=== PATIENT | female | born 1990 | race Caucasian/White ===

== ENCOUNTER 2020-06-23 04:53 | Inpatient (IN) | payer OTHER ==
[2020-06-23 05:57] LABS: APPEARANCE,URINE CLEAR; BILIRUBIN,URINE NEGATIVE (NEGATIVE); COLOR,URINE YELLOW; GLUCOSE, URINE NEGATIVE (NEGATIVE); KETONES,URINE NEGATIVE (NEGATIVE); LEUKOCYTE ESTERASE,URINE NEGATIVE (NEGATIVE); NITRITE,URINE NEGATIVE (NEGATIVE); PROTEIN,URINE NEGATIVE (NEGATIVE); URINE SPECIFIC GRAVITY 1.017; UROBILINOGEN,URINE NEGATIVE mg/dL (<2.0)
[2020-06-23 06:04] LABS: URINE AMPHETAMINES SCREEN NEGATIVE; URINE BARBITURATES SCREEN NEGATIVE; URINE BENZODIAZEPINES SCREEN NEGATIVE; URINE COCAINE SCREEN NEGATIVE; URINE MARIJUANA (THC) SCREEN NEGATIVE; URINE METHADONE SCREEN NEGATIVE
[2020-06-23 06:07] LABS: URINE PHENCYCLIDINE SCREEN NEGATIVE
[2020-06-23] MEDS ORDERED: HYDROXYZINE PAMOATE 50 MG CAPSULE PO ONE (06:33)
[2020-06-23] MEDS ORDERED: HYDROXYZINE PAMOATE 50 MG CAPSULE ONE (06:34)
[2020-06-23] MEDS ORDERED: RINGERS SOLUTION,LACTATED 1,000 ML IV PRN (07:15)
[2020-06-23] MEDS ORDERED: RINGERS SOLUTION,LACTATED 1,000 ML IV ONE (07:28)
[2020-06-23] MEDS ORDERED: RINGERS SOLUTION,LACTATED 500 ML IV ONE (07:28)
[2020-06-23] MEDS ORDERED: MISOPROSTOL 0.2 MG TABLET ONE (08:07)
[2020-06-23] MEDS ORDERED: OXYTOCIN 10 UNIT/ML VIAL ONE (08:07)
[2020-06-23] MEDS ORDERED: OXYTOCIN/0.9 % SODIUM CHLORIDE 30 UNIT/500 ML RTUINJ ONE (08:07)
[2020-06-23] MEDS ORDERED: LIDOCAINE 1% INJ-PF (10 MG/ML) 30 ML SDV ONE (08:07)
[2020-06-23] MEDS ORDERED: OXYTOCIN/0.9 % SODIUM CHLORIDE 30 UNIT/500 ML RTUINJ IV PRN ×2 (08:30→13:33)
[2020-06-23 08:39] LABS: ABSOLUTE EOSINOPHILS # (AUTO) 0.1 10^3/uL (0.0-0.6); ABSOLUTE LYMPHOCYTES (AUTO) 1.5 10^3/uL (0.5-4.7); ABSOLUTE MONOCYTES (AUTO) 0.7 10^3/uL (0.1-1.4); ABSOLUTE NEUT (AUTO) 8.7 10^3/uL (1.7-8.2); BASOPHILS % (AUTO) 0.4 % (0-2); HEMATOCRIT 34.4 % (36.0-47.0); HEMOGLOBIN 11.5 g/dL (12.0-15.5); LYMPHOCYTES % (AUTO) 13.4 % (13-45); MEAN CORPUSCULAR HEMOGLOBIN 28.1 pg (27.0-33.4); MEAN CORPUSCULAR HGB CONC 33.3 g/dL (32.0-36.0); MEAN CORPUSCULAR VOLUME 84 fl (80-97); PLATELET COUNT 239 10^3/uL (150-450); RED BLOOD COUNT 4.08 10^6/uL (3.72-5.28); RED CELL DISTRIBUTION WIDTH 13.3 % (11.5-14.0); SEGMENTED NEUTROPHILS % (AUTO) 79.2 % (42-78); TOTAL CELLS COUNTED % (AUTO) 100 %; WHITE BLOOD COUNT 10.9 10^3/uL (4.0-10.5)
[2020-06-23] MEDS ORDERED: EPHEDRINE SULFATE INJ 50 MG/1 ML AMPULE ONE (10:32)
[2020-06-23] MEDS ORDERED: FENTANYL/BUPIVACAINE/NS/PF 300 MCG/150 ML RTUINJ EPI ONE (10:32)
[2020-06-23] MEDS ORDERED: ROPIVACAINE HCL 0.2% INJ/PF (2 MG/ML) 20 ML SDV ONE (10:33)
--- NOTE | 2020-06-23 10:55 | Admission Physical ---
Datetime Report Generated by CPN: 06/23/2020 10:54 CURRENT ADMISSION Chief Complaint: Uterine Contractions; Suspected Ruptured Membranes Indication for Induction: Not Applicable Admit Impression : Term, Intrauterine ; Ruptured Membranes Admit Plan: Admit to Unit; Initiate Labor Protocol ALLERGIES Medication Allergies: Yes Medication Allergies: amoxicillin (06/23/2020) Latex: Latex Allergies Food Allergies: none Environmental Allergies: none OBSTETRICAL HISTORY EDC: 06/25/2020 00:00 : 2 Para: 0 Term: 0 : 0 SAB: 0 IAB: 1 Ectopic: 0 Livin Cesareans: 0 VBACs: 0 Multiple Births: 0 Gestational Diabetes: No Rh Sensitization: No Incompetent Cervix: No JEFF: No Infertility: No ART Treatment: No Uterine Anomaly: No IUGR: No Hx Previous C/S: No Macrosomia: No Hx Loss/Stillborn: No PIH: No Hx : No Placenta Previa/Abruption: No Depression/PP Depression: Yes PTL/PROM: No Post Hemorrhage: No Current Procedures: Ultrasound Obstetrical History Comments: 2014- IAB at 7 weeks G2- Current SEE RECORDS Alcohol: No Marijuana : No Cocaine: No Other Illicit Drugs: No Cigarettes: Never Smoker. 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 INFECTIOUS HISTORY Gonorrhea: No Genital Herpes: No Chlamydia: No Tuberculosis: No Syphilis: No Hepatitis: No HIV/AIDS Exposure: No Rash or Viral Illness: No HPV: No PHYSICAL EXAM General: Normal HEENT: Normal Neurologic: Normal Thyroid: Normal Heart: Normal Lungs: Normal Breast: Deferred Back: Normal Abdomen: Normal Genitourinary Exam: Normal Extremities: Normal DTRs: Normal Pelvic Type: Adequate Vital Signs: Reviewed VAGINAL EXAM Dilatation: 4 Effacement: 90 Station: -2 FETUS A EGA: 39.5 Monitoring: External US FHR- Baseline: 120 Variability: Moderate 6-25bpm Decelerations: None FHR Category: Category I Estimated Weight (gm): 3600 Presentation: Vertex Admit Comment: anticipate delivery PLANS FOR LABOR AND DELIVERY Labor and Delivery: None Other Pain Management Plans: see how it goes Feeding Preference: Both Benefit of Breast Feed Discussed: Yes Circumcision: N/A INFORMED CONSENT Signature: with User ID: [email or web address]
[2020-06-23] MEDS ORDERED: DIPHENHYDRAMINE HCL 25 MG CAPSULE PO PRN (13:33)
[2020-06-23] MEDS ORDERED: MEASLES,MUMPS&RUBELLA VACC/PF 0.5 ML VIAL SUBCUT PRN (13:33)
[2020-06-23] MEDS ORDERED: ACETAMINOPHEN 650 MG SUPP.RECT PR PRN (13:33)
[2020-06-23] MEDS ORDERED: MAG HYDROX/AL HYDROX/SIMETH SUSP 30 ML UDCUP PO PRN (13:33)
[2020-06-23] MEDS ORDERED: VARICELLA VACC/PF (1350 UNIT/0.5 ML) 0.5 ML VIAL SUBCUT PRN (13:33)
[2020-06-23] MEDS ORDERED: FAMOTIDINE 20 MG TABLET PO PRN (13:33)
[2020-06-23] MEDS ORDERED: GLYCERIN/WITCH HAZEL LEAF 1 EACH MED..WIPE TP PRN (13:33)
[2020-06-23] MEDS ORDERED: ACETAMINOPHEN 325 MG TABLET PO PRN (13:33)
[2020-06-23] MEDS ORDERED: DIBUCAINE 1% OINTMENT 28 GM TP PRN (13:33)
[2020-06-23] MEDS ORDERED: DIPH/PERTUSS(ACELL)/TETANUS VAC/PF 0.5 ML SYR (>=10YO) IM PRN (13:33)
[2020-06-23] MEDS ORDERED: PSEUDOEPHEDRINE HCL 30 MG TABLET PO PRN (13:33)
[2020-06-23] MEDS ORDERED: ZOLPIDEM TARTRATE 5 MG TABLET PO PRN (13:33)
[2020-06-23] MEDS ORDERED: MAGNESIUM HYDROXIDE SUSP 30 ML UDCUP PO PRN (13:33)
[2020-06-23] MEDS ORDERED: ACETAMINOPHEN WITH CODEINE #3 TABLET PO PRN ×2 (13:33)
--- NOTE | 2020-06-23 14:59 | Birth Certificate Data ---
Cert Data Datetime Report Generated by CPN: 06/23/2020 14:59 CERTIFICATE DATA Delivery Provider: Aman Diez MD (06/23/2020 05:22:Kamryn Álvarez RN) 47a. Care: Yes (06/23/2020 05:22:Mariam Young RN) 48a. Number of Prev Live Births: 0 (06/23/2020 05:22:Mariam Young RN) 48b. Now Livin (06/23/2020 05:22:Mariam Young RN) 48c. Live Births Now : 0 (06/23/2020 05:22:QS system process) 48e. Losses: 1 (06/23/2020 05:22:Mariam Young RN) 48f. Date of Last Preg Loss: 10/24/2014 00:00 (06/23/2020 05:22:Mariam Young RN) RISK FACTORS IN THIS 49a. Diabetes: No (06/23/2020 05:22:Mariam Young RN) 49b. Hypertension: No (06/23/2020 05:22:Mariam Young RN) 49c. Previous Births: 0 (06/23/2020 05:22:Mariam Young RN) 49d. Stillborns: No (06/23/2020 05:22:Mariam Young RN) 49d. IUGR: No (06/23/2020 05:22:Mariam Young RN) 49e. Infertility Treatment: No (06/23/2020 05:22:Mariam Young RN) 49f. Previous Cesareans: 0 (06/23/2020 05:22:Mariam Young RN) Mother's Height 50b. Height Inches: 63 (06/23/2020 13:42:QS system process) Mother's Weight 51a. Pre- Weight (lbs): 126 (06/23/2020 05:22:Mariam Young RN) 51b. Weight at Delivery (lbs): 156 (06/23/2020 13:42:QS system process) 52. Dt Last Normal Menses Began: 09/19/2019 00:00 (06/23/2020 05:22:Mariam Young RN) Infections Present/Treated 53a. Gonorrhea: No (06/23/2020 05:22:Mariam Young RN) Results this Hospital Visit : Negative (06/23/2020 05:22:Mariam Young RN) 53b. Syphilis: No (06/23/2020 05:22:Mariam Young RN) Results this Hospital Visit: NONREACTIVE (06/23/2020 08:20:QS system process) 53c. Chlamydia: No (06/23/2020 05:22:Mariam Young RN) Results this Hospital Visit: Negative (06/23/2020 05:22:Mariam Young RN) 53d. Hepatitis B: No (06/23/2020 05:22:Mariam Young RN) Results this Hospital Visit: Negative (06/23/2020 05:22:Mariam Young RN) 53e. Hepatitis C: Negative (06/23/2020 05:22:Mariam Young RN) 53h. Mother Tested for HBsAG: Yes (06/23/2020 05:22:Mariam Young RN) 53i. Date Tested: 04/01/2020 00:00 (06/23/2020 05:22:Mariam Young RN) 53j. Test Result: Negative (06/23/2020 05:22:Mariam Young RN) Obstetric Procedures 54a, b, c. Obstetric Procedures: Ultrasound (06/23/2020 05:22:Mariam Young RN) Cigarette Smoking Cigarette Smoking: Never Smoker. [id number] (06/23/2020 05:22:Mariam Young RN) 55a. 3 Months Before Preg - Ci (06/23/2020 05:22:Mariam Young RN) 55a. Packs: 0 (06/23/2020 05:22:Mariam Young RN) 55b. 1st Trimester of Preg- Ci (06/23/2020 05:22:Mariam Young RN) 55b. Packs: 0 (06/23/2020 05:22:Mariam Young RN) 55c. 2nd Trimester of Preg- Ci (06/23/2020 05:22:Mariam Young RN) 55c. Packs: 0 (06/23/2020 05:22:Mariam Young RN) 55d. 3rd Trimester of Preg- Ci (06/23/2020 05:22:Mariam Young RN) 55d. Packs: 0 (06/23/2020 05:22:Mariam Young RN) Onset of Labor 56a. PROM >12 Hrs: 6.53 (06/23/2020 07:12:QS system process) 56b. Precipitous Labor <3 Hrs: 6 (06/23/2020 05:22:QS system process) 56c. Prolonged Labor > 20 Hrs: 6 (06/23/2020 05:22:QS system process) 57a. Induction of Labor: Augmentation (06/23/2020 05:22:Kamryn Álvarez RN) 57c. Non-Vertex Presentation A: Vertex (06/23/2020 05:22:Kamryn Álvarez RN) 57d. Steroids - Lung Mat: None (06/23/2020 05:22:Kamryn Álvarez RN) 57d. Steroids - Lung Mat: Not Applicable (06/23/2020 05:22:Kamryn Álvarez RN) 57f. Mat [place] or Temp >100.4: 98.3 (06/23/2020 05:22:Kamryn Álvarez RN) 57g. Moderate/Heavy Meconium: Clear (06/23/2020 07:12:Kamryn Álvarez RN) 57h. Intolerance of Labor: N/A (06/23/2020 05:22:Kamryn Álvarez RN) : N/A (06/23/2020 05:22:Kamryn Álvarez RN) 57i. Epidural/Spinal Anesthesia: Epidural (06/23/2020 05:22:Kamryn Álvarez RN) Method of Delivery 58a. Forceps - Unsuccessful A: N/A (06/23/2020 05:22:Kamryn Álvarez RN) 58b. Vacuum - Unsuccessful A: N/A (06/23/2020 05:22:Kamryn Álvarez RN) 58c. Presentation at 58c. Presentation at - A : Vertex (06/23/2020 05:22:[facility], ) 58c. Presentation at - A : N/A (06/23/2020 05:22:[facility], ) 58c. Presentation at - A : Cephalic (06/23/2020 05:22:[facility], ) Final Route and Method of Del 58d. Baby A Route/Delivery: Vaginal (06/23/2020 13:17:Kamryn Álvarez RN) 58e. Trial of Labor Attempted: No (06/23/2020 05:22:[facility], RN) 58e. Trial of Labor Attempted A: N/A (06/23/2020 05:22:[facility] RN) 58e. Trial of Labor Attempted B: N/A (06/23/2020 05:22:[facility], RN) Maternal Morbidity 59b. 3rd or 4th Degree Lacs: Perineal (06/23/2020 05:22:Kamryn Sales, RN) 59b. 3rd or 4th Degree Lacs: Second Degree (06/23/2020 05:22:Kamryn Sales, RN) 59b. 3rd or 4th Degree Lacs: Left labial/perineal (06/23/2020 05:22:Kamryn Sales, RN) Birthweight Baby A: 3612 (06/23/2020 05:22:Kamryn Sales, RN) 60a. Pounds : 7 (06/23/2020 05:22:QS system process) 60b. Ounces: 15 (06/23/2020 05:22:QS system process) 61. GA at Delivery Baby A: 39.5 (06/23/2020 05:22:Kamryn Álvarez RN) : Full Term- 39- 40.6 Weeks (06/23/2020 05:22:QS system process) 62a. 5 Minute Baby A: 9 (06/23/2020 05:22:QS system process)
--- NOTE | 2020-06-23 14:59 | Delivery Summary ---
Del Sum A-C Datetime Report Generated by CPN: 06/23/2020 14:59 DELIVERY PERSONNEL DELIVERY PERSONNEL: [id number] Delivery Doctor:: Aman Diez MD Labor and Delivery Nurse:: Kamryn Álvarez, RN Nursery Nurse:: Nanette Chen RN Dewaterer Operator/FORM BLOCK MAKER: Kelin [facility], CURB WORKER MATERNAL INFORMATION Delivery Anesthesia: Epidural Medications After Delivery: Pitocin 30 Units in 500ml NS/D5W Delivery QBL: 250 Maternal Complications: None LABOR SUMMARY EDC: 06/25/2020 00:00 No. Babies in Womb: 1 Attempted: No Labor Anesthesia: Epidural LABOR INFORMATION Reason for Induction: Not Applicable Onset of Labor: 06/23/2020 06:45 Complete Dilatation: 06/23/2020 12:43 Oxytocin: Augmentation Group B Beta Strep: Negative Antibiotics # of Doses: 0 Name of Antibiotic Given: NA Steroids Given: None Reason Steroids Not Administered: Not Applicable MEMBRANES Membranes Rupture Method: Spontaneous Rupture of Membranes: 06/23/2020 06:45 Length of Rupture (hr): 6.53 Amniotic Fluid Color: Clear Amniotic Fluid Amount: Small Amniotic Fluid Odor: Normal STAGES OF LABOR Stage 1 hr: 5 Stage 1 min: 58 Stage 2 hr: 0 Stage 2 min: 34 Stage 3 hr: 0 Stage 3 min: 8 Total Time in Labor hr: 6 Total Time in Labor min: 40 VAGINAL DELIVERY Episiotomy: None Laceration #1: Perineal Laceration Extension #1: Second Degree Laceration #2: Vaginal Laceration Extension #2: N/A Laceration #3: None Laceration Extension #3: N/A Other Laceration: Left labial/perineal Laceration Repair: Yes Laceration Repair Note: second degree perineal laceration repaired with 3-0 chromic suture in usual fashion. left perineal laceration repaired with 3-0 chromic suture Sponge Count Correct: Yes Sharps Count Correct: Yes CSECTION DELIVERY Primary Indication: N/A Secondary Indication: N/A CSection Incidence: N/A Labor: N/A Elective: N/A BABY A INFORMATION Delivery Date/Time: 06/23/2020 13:17 Method of Delivery: Vaginal Nurse Controlled Delivery: No Born in Route : No : N/A Forceps: N/A Vacuum Extraction: N/A Shoulder Dystocia : No PRESENTATION/POSITION BABY A Presentation: Cephalic Cephalic Presentation: Vertex Vertex Position: Left Occipital Anterior Breech Presentation: N/A PLACENTA INFORMATION BABY A Placenta Delivery Time : 06/23/2020 13:25 Placenta Method of Delivery: Spontaneous Placenta Status: Delivered SCORES BABY A Heart Rate 1 min: >100 bpm Resp Effort 1 min: Good Cry Reflex Irritability 1 min: Cough or Sneeze or Pulls Away Muscle Tone 1 min: Active Motion Color 1 min: Blue/Pale Resuscitation Effort 1 min: Tactile Stimulation SCORE 1 MIN: 8 Heart Rate 5 min: >100 bpm Resp Effort 5 min: Good Cry Reflex Irritability 5 min: Cough or Sneeze or Pulls Away Muscle Tone 5 min: Active Motion Color 5 min: Body [place], Extremities Blue Resuscitation Effort 5 min: N/A SCORE 5 MIN: 9 INFANT INFORMATION BABY A Gestational Age at Delivery: 39.5 Gestational Status: Full Term- 39- 40.6 Weeks Infant Outcome : Liveborn Condition : Stable Sex: Female IDENTIFICATION BABY A Verification Date/Time: 06/23/2020 13:55 ID Band Number: [id number] Mother's Name Verified: Yes Infant RN Verifying : MJoelle Álvarez, RN Additional Verifying Personnel: Igor Cuenca RN WEIGHT/LENGTH BABY A Birthweight (gm): 3612 Infant Weight (lb): 7 Weight (oz): 15 Infant Length (in): 19.00 Length (cm): 48.26 CORD INFORMATION BABY A No. Cord Vessels: 3 Nuchal Cord : N/A Cord Blood Taken: Yes-For Storage (Mom's Blood type +) Suction: Mouth; Nose ASSESSMENT BABY A Complications: None Physical Findings at Delivery: Within Normal Limits Skin to Skin: Yes Skin to Skin Time (min): 90 Transferred To: Remains with Mother BABY B INFORMATION : N/A SIGNATURES Signature: with User ID: [email or web address]
[2020-06-23] MEDS ORDERED: IBUPROFEN 800 MG TABLET ONE (15:36)
[2020-06-23] MEDS: IBUPROFEN 800 MG TABLET PO SCH ×2 (15:42→22:01)
[2020-06-23] MEDS: FERROUS SULFATE 325 MG TABLET PO SCH (18:34)
[2020-06-23] MEDS: BENZOCAINE/MENTHOL AEROSOL SPRAY 56 ML TOP PRN (18:34)
[2020-06-23] MEDS: DOCUSATE SODIUM 100 MG CAPSULE PO SCH (18:34)
[2020-06-24] MEDS: LEVOTHYROXINE SODIUM 0.025 MG TABLET PO SCH (06:37)
[2020-06-24] MEDS: IBUPROFEN 800 MG TABLET PO SCH ×3 (06:37→21:16)
[2020-06-24 06:56] LABS: HEMATOCRIT 31.5 % (36.0-47.0); HEMOGLOBIN 10.5 g/dL (12.0-15.5); MEAN CORPUSCULAR HEMOGLOBIN 28.3 pg (27.0-33.4); MEAN CORPUSCULAR HGB CONC 33.1 g/dL (32.0-36.0); MEAN CORPUSCULAR VOLUME 86 fl (80-97); PLATELET COUNT 235 10^3/uL (150-450); RED BLOOD COUNT 3.69 10^6/uL (3.72-5.28); RED CELL DISTRIBUTION WIDTH 13.5 % (11.5-14.0); WHITE BLOOD COUNT 13.6 10^3/uL (4.0-10.5)
[2020-06-24] MEDS ORDERED: PRENATAL VITAMIN W DHA CAPSULE PO SCH (10:00)
[2020-06-24] MEDS: SENNOSIDES/DOCUSATE 8.6-50 MG 1 EACH TABLET PO SCH (10:12)
[2020-06-24] MEDS: FERROUS SULFATE 325 MG TABLET PO SCH ×2 (10:13→18:11)
[2020-06-24] MEDS: DOCUSATE SODIUM 100 MG CAPSULE PO SCH ×2 (10:13→18:11)
--- NOTE | 2020-06-24 11:47 | PDOC PROGRESS REPORT ---
Subjective-OB Progress Note for:: 06/24/20 Subjective: reports bleeding slowing, pain controlled with current meds. denies needs Physical Exam (OB) Vital Signs: Temp Pulse Resp BP Pulse Ox 97.7 F 72 15 97/55 L 100 06/24/20 10:00 06/24/20 07:30 06/24/20 07:30 06/24/20 07:30 06/24/20 07:30 Intake & Output 06/23/20 06/24/20 06/25/20 06:59 06:59 06:59 Intake Total 140 Output Total 250 Balance -250 140 Weight 71.4 kg - Maternal Morbidity 59. Maternal Morbidity (serious complications experinced by the mother associated with labor and delivery: None of the above - Abdomen Description: Soft Hernia Present: No Fundal Description: Firm, Midline Fundal Height: u/u - u/2 - Abdominal Distension: No distension Tenderness: Nontender - Extremities Lower extremities: Sergio's sign - neg Calf: Normal, Nontender Objective-Diagnostic Laboratory: 06/24/20 06:15 06/24/20 06:15 WBC 13.6 H RBC 3.69 L Hgb 10.5 L Hct 31.5 L MCV 86 MCH 28.3 MCHC 33.1 RDW 13.5 Plt Count 235 Assessment and Plan(PN) - Assessment and Plan (1) Obstetrical laceration Is this a current diagnosis for this admission?: Yes (2) Normal vaginal delivery Is this a current diagnosis for this admission?: Yes (3) SROM (spontaneous rupture of membranes) Is this a current diagnosis for this admission?: Yes (4) Spontaneous onset of labor Is this a current diagnosis for this admission?: Yes - Time Spent with Patient Time with patient: Less than 15 minutes - Disposition Anticipated Discharge Disposition: Home, Self Care Anticipated Discharge Timeframe: within 24 hours
[2020-06-24] MEDS: BENZOCAINE/MENTHOL AEROSOL SPRAY 56 ML TOP PRN (18:18)
[2020-06-25] MEDS: IBUPROFEN 800 MG TABLET PO SCH (06:05)
[2020-06-25] MEDS: LEVOTHYROXINE SODIUM 0.025 MG TABLET PO SCH (06:05)
[2020-06-25] MEDS: FERROUS SULFATE 325 MG TABLET PO SCH (09:46)
[2020-06-25] MEDS: DOCUSATE SODIUM 100 MG CAPSULE PO SCH (09:46)
[2020-06-25] MEDS: SENNOSIDES/DOCUSATE 8.6-50 MG 1 EACH TABLET PO SCH (09:46)
--- NOTE | 2020-06-25 10:44 | PDOC DISCHARGE SUMMARY ---
Impression - Admit/DC Date/PCP Admission Date/Primary Care Provider: 06/23/20 07:22 DAFNE COWAN MD Discharge Date: 06/25/20 - Discharge Diagnosis (1) Obstetrical laceration Is this a current diagnosis for this admission?: Yes (2) Normal vaginal delivery Is this a current diagnosis for this admission?: Yes (3) SROM (spontaneous rupture of membranes) Is this a current diagnosis for this admission?: Yes (4) Spontaneous onset of labor Is this a current diagnosis for this admission?: Yes - Additional Information Discharge Diet: Regular Discharge Activity: Balance Activity w/Rest, Pelvic Rest Referrals: DAFNE COWAN MD [Primary Care Provider] - Prescriptions: Ibuprofen [Motrin 800 mg Tablet] 800 mg PO Q8HP PRN #60 tablet PRN Reason: Home Medications: Vit,Calc76/Iron/Folic [Prenatabs Rx Tablet] 1 tab PO DAILY 06/23/20 Ibuprofen [Motrin 800 mg Tablet] 800 mg PO Q8HP PRN #60 tablet 06/25/20 Hospital Course 59. Maternal Morbidity (serious complications experinced by the mother associated with labor and delivery: None of the above Results Laboratory Results: WBC 13.6 10^3/uL (4.0-10.5) H 06/24/20 06:15 RBC 3.69 10^6/uL (3.72-5.28) L 06/24/20 06:15 Hgb 10.5 g/dL (12.0-15.5) L 06/24/20 06:15 Hct 31.5 % (36.0-47.0) L 06/24/20 06:15 MCV 86 fl (80-97) 06/24/20 06:15 MCH 28.3 pg (27.0-33.4) 06/24/20 06:15 MCHC 33.1 g/dL (32.0-36.0) 06/24/20 06:15 RDW 13.5 % (11.5-14.0) 06/24/20 06:15 Plt Count 235 10^3/uL (150-450) 06/24/20 06:15 Lymph % (Auto) 13.4 % (13-45) 06/23/20 08:20 Alexander % (Auto) 6.0 % (3-13) 06/23/20 08:20 Eos % (Auto) 1.0 % (0-6) 06/23/20 08:20 Baso % (Auto) 0.4 % (0-2) 06/23/20 08:20 Absolute Neuts (auto) 8.7 10^3/uL (1.7-8.2) H 06/23/20 08:20 Absolute Lymphs (auto) 1.5 10^3/uL (0.5-4.7) 06/23/20 08:20 Absolute Monos (auto) 0.7 10^3/uL (0.1-1.4) 06/23/20 08:20 Absolute Eos (auto) 0.1 10^3/uL (0.0-0.6) 06/23/20 08:20 Absolute Basos (auto) 0.0 10^3/uL (0.0-0.2) 06/23/20 08:20 Seg Neutrophils % 79.2 % (42-78) H 06/23/20 08:20 Urine Color YELLOW 06/23/20 05:00 Urine Appearance CLEAR 06/23/20 05:00 Urine pH 7.0 (5.0-9.0) 06/23/20 05:00 Ur Specific [place] 1.017 06/23/20 05:00 Urine Protein NEGATIVE mg/dL (NEGATIVE) 06/23/20 05:00 Urine Glucose (UA) NEGATIVE mg/dL (NEGATIVE) 06/23/20 05:00 Urine Ketones NEGATIVE mg/dL (NEGATIVE) 06/23/20 05:00 Urine Blood NEGATIVE (NEGATIVE) 06/23/20 05:00 Urine Nitrite NEGATIVE (NEGATIVE) 06/23/20 05:00 Urine Bilirubin NEGATIVE (NEGATIVE) 06/23/20 05:00 Urine Urobilinogen NEGATIVE mg/dL (<2.0) 06/23/20 05:00 Ur Leukocyte Esterase NEGATIVE (NEGATIVE) 06/23/20 05:00 Urine Ascorbic Acid NEGATIVE (NEGATIVE) 06/23/20 05:00 Membranes Rupture POSITIVE (NEGATIVE) H 06/23/20 06:55 Urine Opiates Screen NEGATIVE 06/23/20 05:00 Urine Methadone Screen NEGATIVE 06/23/20 05:00 Ur Barbiturates Screen NEGATIVE 06/23/20 05:00 Ur Phencyclidine Scrn NEGATIVE 06/23/20 05:00 Ur Amphetamines Screen NEGATIVE 06/23/20 05:00 U Benzodiazepines Scrn NEGATIVE 06/23/20 05:00 Urine Cocaine Screen NEGATIVE 06/23/20 05:00 U Marijuana (THC) Screen NEGATIVE 06/23/20 05:00 RPR NONREACTIVE (NONREACTIVE) 06/23/20 08:20 Blood Type B POSITIVE 06/23/20 08:20 Antibody Screen NEGATIVE 06/23/20 08:20 Plan Health Concerns: started on synthroid during . d/c for now-recheck at PP visit Plan of Treatment: follow up in 4 weeks at [facility] for post check
[2020-06-25 11:33] VITALS: BP 97/55
== END 2020-06-25 12:11 | disposition home or self-care (01) | DRG 807 ==
LOC: LC 04:53 → LR 07:22 → 2S 16:00
PROVIDERS: ADMIT Obstetrics & Gynecology; ATTEND Obstetrics & Gynecology
PROC: 10E0XZZ Delivery of Products of Conception, External Approach (ICD-10-PCS; principal; 2020-06-23)
PROC: 0KQM0ZZ Repair Perineum Muscle, Open Approach (ICD-10-PCS; 2020-06-23)
DX: O71.4 Obstetric high vaginal laceration alone (principal); Z37.0 Single live birth; Z3A.39 39 weeks gestation of pregnancy; Z88.1 Allergy status to other antibiotic agents; Z91.040 Latex allergy status
CPT/HCPCS: 1967; 36415; 80307; 81005; 84112; 85025; 85027; 86592; 86850; 86900; 86901; 94760; J2590; J2795; J3010; J3490